=== PATIENT | female | born 1940 | race Caucasian/White ===

== ENCOUNTER 2017-02-19 19:06 | Emergency (ER) | payer MEDICARE, OTHER ==
[2017-02-19 19:38] VITALS: BP 140/75
[2017-02-19] MEDS ORDERED: Amoxicillin/Clavulanate TAB* 875 MG PO ONE (19:52)
[2017-02-19] MEDS ORDERED: Tetan/Diph/Pertus SYR(Tdap)* 0.5 ML SYR(BOOSTRIX) use SYR IM ONE ×2 (19:52→21:19)
[2017-02-19] MEDS ORDERED: Benzoin Compound STICK TOPICAL ONE (19:52)
--- NOTE | 2017-02-19 20:22 | RAD ---
INDICATION: Right hand injury. TECHNIQUE: 4 views of the right hand were obtained. FINDINGS: There is soft tissue swelling over the dorsal aspect of the hand overlying the metacarpal bones. No fracture or repeat foreign body is seen. IMPRESSION: NO FRACTURE OR RADIOPAQUE FOREIGN BODY IS SEEN.
--- NOTE | 2017-02-19 21:17 | UC ---
Skin Complaint HPI - HPI Summary HPI Summary: DOG BITE TO RIGHT HAND RIGHT FOREARM WITH CORRESPONDING LACERATIONS. LAST TETANUS 10YRS AGO. ANIMAL IS DAUGHTER'S DOG, ANIMAL IS RESCUE ANIMAL AND IMMUNIZED. - History of Current Complaint Chief Complaint: UCBiteInjury Time Seen by Provider: 02/19/17 19:20 Stated Complaint: DOG BITE Hx Obtained From: Patient Onset/Duration: Sudden Onset, Lasting Hours Skin Exposure Onset/Duration: Hours Ago Onset Severity: Moderate Current Severity: Mild Location: Discrete - RIGHT WRIST; RIGHT HAND LACERATIONS Aggravating Factor(s): Touch Alleviating Factor(s): Nothing Associated Signs & Symptoms: Positive: Tenderness. Negative: Hoarseness, Throat Tightening, Drainage, Red Streaks Related History: Trauma, Possible Reaction to: Animal - Allergy/Home Medications Allergies/Adverse Reactions: Allergies Allergy/AdvReac Type Severity Reaction Status Date / Time Sulfa Antibiotics Allergy Unknown Unknown Verified 01/28/14 08:42 Reaction Details Review of Systems Constitutional: Negative Skin: Other - LACERATION RIGHT HAND RIGHT WRIST Eyes: Negative ENT: Negative Respiratory: Negative Cardiovascular: Negative Gastrointestinal: Negative Genitourinary: Negative Motor: Negative Neurovascular: Negative Musculoskeletal: Negative Neurological: Negative Psychological: Negative Is Patient Immunocompromised?: No All Other Systems Reviewed And Are Negative: Yes PMH/Surg Hx/FS Hx/Imm Hx Previously Healthy: Yes - Surgical History Surgical History: Yes Surgery Procedure, Year, and Place: COLONOSCOPY-[facility] - Family History Known Family History: Negative: Blood Disorder - Social History Occupation: Retired Lives: With Family Alcohol Use: Weekly Alcohol Amount: 1-2 TIMES PER WEEK Substance Use Type: None Smoking Status (MU): Never Smoked Tobacco Physical Exam Triage Information Reviewed: Yes Appearance: Well-Appearing, No Pain Distress, Well-Nourished Vital Signs: Initial Vital Signs Temp 97.8 F 02/19/17 19:34 Pulse 77 02/19/17 19:34 Resp 16 02/19/17 19:34 BP 140/75 02/19/17 19:34 Pulse Ox 96 02/19/17 19:34 Vital Signs Reviewed: Yes Eye Exam: Normal ENT Exam: Normal ENT: Positive: TMs normal Dental Exam: Normal Neck exam: Normal Neck: Positive: Supple, Nontender, No Lymphadenopathy Respiratory Exam: Normal Respiratory: Positive: Chest non-tender, Lungs clear, Normal breath sounds, No respiratory distress Cardiovascular Exam: Normal Cardiovascular: Positive: RRR, No Murmur, Pulses Normal, Brisk Capillary Refill Abdominal Exam: Normal Musculoskeletal Exam: Normal Musculoskeletal: Positive: Strength Intact, ROM Intact Neurological Exam: Normal Psychological Exam: Normal Skin: Positive: Other - RIGHT HAND RIGHT WRIST LACERATION Laceration Repair - Laceration Repair 1 Description: Irregular Laceration Size After Repair: Length (cm) - 3, Width (mm) - 5, Depth (mm) - 2 Closure Material: Skin Adhesive, SteriStrips 2 Description: Irregular Laceration Size After Repair: Length (cm) - 4, Width (mm) - 5, Depth (mm) - 2 Closure Material: Skin Adhesive, SteriStrips Course/Dx - Differential Diagnoses - Skin Complaint Differential Diagnoses: Cellulitis, Other - Diagnoses Provider Diagnoses: DOG BITE RIGHT HAND FOREARM. 2X LACERATION TO RIGHT HAND AND FOREARM WITH STERISTRIP REPAIR. TETANUS PROPHYLAXIS Discharge - Discharge Plan Condition: Stable Disposition: HOME Prescriptions: Amoxicillin/Clavulanate TAB* [Augmentin TAB 875*] 875 mg PO BID #20 tab Patient Education Materials: Animal Bite (ED) Referrals: Meg Clark MD [Primary Care Provider] -
== END 2017-02-19 21:30 | disposition home or self-care (01) ==
LOC: UCEAST 19:06
DX: S61.411A Laceration without foreign body of right hand, initial encounter (principal); S51.811A Laceration without foreign body of right forearm, initial encounter; W54.0XXA Bitten by dog, initial encounter; Y93.9 Activity, unspecified; Y92.9 Unspecified place or not applicable; Y99.9 Unspecified external cause status
CPT/HCPCS: 12002; 90471; 90715; 99212; A9270-GY; G0463